=== PATIENT | female | born 1980 | race Caucasian/White ===

== ENCOUNTER 2016-12-21 17:06 | Emergency (ER) | payer MEDICAID ==
--- NOTE | 2016-12-29 09:05 | ER ---
ADMIT: 12/21/2016 RM/LOC: ER [facility] MR#: [id number] [place], [place] [id number] DILLON CALDERÓN [address] [place] [address] Emergency Room Report SEX: F AGE: 36 : 1980 DATE: 12/21/2016 HISTORY OF PRESENT ILLNESS: The patient is a 36-year-old female, who has had multiple surgeries in her abdomen; gastric sleeve, bladder lift, tummy tuck. She presents to the emergency room today after 4 months after her gastric bypass complaining of abdominal pain, fever, nausea, vomiting for 3 times today with weight loss, back pain, which the weight loss is intended. MEDICATIONS: ALLERGIES: TRAMADOL, TYLENOL, AND CODEINE. PHYSICAL EXAMINATION: VITAL SIGNS: Blood pressure 137/90, heart rate is 102, respirations 14, temp is 97.2, O2 saturations 100%. GENERAL: Alert. HEENT: Normal inspection. NECK: Supple. RESPIRATIONS: No distress. ABDOMEN: Suprapubic tenderness. She has had a hysterectomy she mentions. BACK: Normal inspection. SKIN: Good color and turgor. Warm and dry. EXTREMITIES: Nontender. NEUROLOGIC: Oriented x4. Mood and affect are appropriate. LABORATORY DATA AND IMAGING: CBC within normal limits. Chemistry, normal. UA; wbc 6, rbc 6, bacteria few, leukocytes 1+. CT of the abdomen totally negative, no obstruction. CLINICAL IMPRESSION: 1. Urinary tract infection. 2. Abdominal pain, suprapubic. PLAN: Given a prescription for Bactrim and some Zofran for home use. Encouraged to follow up with primary provider. Note for work given. NEHA Hewitt / Ottoniel Ramsay MD / breana JOB #: [id number] CC: Ottoniel Ramsay MD, Attending Physician José Miguel Zurita MD, Family Physician
== END 2016-12-21 21:40 | disposition home or self-care (01) ==
LOC: ER 17:06
DX: N39.0 Urinary tract infection, site not specified (principal); Z88.5 Allergy status to narcotic agent; Z88.8 Allergy status to other drugs, medicaments and biological substances